=== PATIENT | male | born 1955 | race African-American/Black ===

== ENCOUNTER 2017-06-20 21:54 | Emergency (ER) | payer MEDICARE, MEDICAID ==
[~2017-06-20] VITALS: Ht 172.7 cm; Wt 82.0 kg
[2017-06-20] MEDS ORDERED: SODIUM CHLORIDE 0.9% 1,000 ML IV ONE (22:54)
[2017-06-20] MEDS ORDERED: FAMOTIDINE 20MG/2ML VIAL IV STA (22:54)
[2017-06-20 23:28] LABS: HEMATOCRIT. 38.3 % (42.0-52.0); HEMOGLOBIN. 12.7 g/dL (14.0-18.0); MEAN CORPUSCULAR HEMOGLOBIN 31.4 pg (28.0-32.0); MEAN CORPUSCULAR VOLUME 95.1 fL (80.0-94.0); MEAN PLATELET VOLUME 8.4 fl (7.4-10.4); PLATELET 158 x1000/uL (130-400); RED BLOOD CELL COUNT 4.03 mill/uL (4.7-6.1); RED CELL DISTRIBUTION WIDTH 13.9 % (11.6-14.6)
[2017-06-20 23:36] LABS: INR 1.1; PROTHROMBIN TIME 11.5 sec (9.4-11.6)
[2017-06-20 23:48] LABS: CHLORIDE 107 mEq/L (98-107)
[2017-06-21] MEDS ORDERED: SODIUM CHLORIDE 0.9% 1,000 ML IV ONE (00:15)
[2017-06-21] MEDS ORDERED: AZITHROMYCIN 500 MG in DEXT 5% WATER 250 ML IV SCH (00:15)
[2017-06-21] MEDS ORDERED: CEFTRIAXONE 1 G PREMIX 50 ML IV ONE (00:15)
[2017-06-21] MEDS ORDERED: AZITHROMYCIN 500 MG in SODIUM CHLORIDE 0.9% 250 ML IV SCH (00:46)
[2017-06-21] MEDS ORDERED: POTASSIUM CHLORIDE INJ 40 MEQ in DEXT 5% WATER 500 ML IV SCH (01:00)
[2017-06-21 01:03] LABS: PLATELET ESTIMATE NORMAL
[2017-06-21] MEDS ORDERED: MORPHINE SULFATE 4 MG/ML CPJ (NOT FOR IM USE) IV SCH (04:30)
[2017-06-21 04:53] VITALS: BP 116/65
== END 2017-06-21 05:30 | disposition left against medical advice (07) ==
LOC: ER 22:05 → EDBEDREQ 06-21 01:54 → ER 06-21 05:30 → CANRESERV 06-21 07:23 → ENRESERV 06-21 07:23 → CANBEDREQ 06-21 16:05
DX: J18.9 Pneumonia, unspecified organism (principal); A41.9 Sepsis, unspecified organism; R00.0 Tachycardia, unspecified; F17.200 Nicotine dependence, unspecified, uncomplicated; F12.10 Cannabis abuse, uncomplicated; Z88.5 Allergy status to narcotic agent
CPT/HCPCS: 36415; 71045; 80053; 83605; 83690; 85025; 85610; 87040; 87077; 87186; 93005; 96361; 96365; 96366; 96368; 96375; 99285; J0456; J0696; J2270; J3480; J3490; J7030; J7050; J7060